=== PATIENT | female | born 1990 | race Caucasian/White ===

== ENCOUNTER 2017-08-23 08:58 | Emergency (ER) | payer OTHER ==
[~2017-08-23 08:58] MED LIST: CIPR1TAB11 PO; GLC/500 PO; POLY335025 PO; PRLSR20 PO; SENN-58 PO
[2017-08-23] MEDS ORDERED: ACETAMINOPHEN 325 MG TAB PO STA (09:58)
--- NOTE | 2017-08-23 10:14 | DIAGNOSTIC IMAGING REPORT ---
SINGLE VIEW CHEST CLINICAL HISTORY: Right upper quadrant abdominal pain. FINDINGS: An AP, portable, upright chest radiograph is compared to study dated 07/10/2011. The cardiomediastinal silhouette is unremarkable. There are low lung volumes. Bibasilar airspace opacities likely represent atelectasis. No large pleural effusion or pneumothorax is seen. The bony thorax is grossly intact. There is mild thoracolumbar scoliosis. IMPRESSION: Low lung volumes with no acute cardiopulmonary abnormality. Electronically signed by: Homer Hernandez M.D. 08/23/2017 10:12 AM Dictated Date/Time: 08/23/2017 10:12 AM
[2017-08-23 11:34] LABS: BASO % 0.2 %; EOS % 0.2 %; HEMATOCRIT 43.1 % (37-47); HEMOGLOBIN 14.8 g/dL (12.0-16.0); LYMPH % 30.4 %; LYMPH ABS # 1.32 K/uL (1.2-3.4); MEAN CELL VOLUME 98.9 fL (80-100); MEAN CORPUSCULAR HEMOGLOBIN 33.9 pg (25-34); MEAN CORPUSCULAR HGB CONC 34.3 g/dl (32-36); MEAN PLATELET VOLUME 9.5 fL (7.4-10.4); MONO % 10.1 %; MONO ABS # 0.44 K/uL (0.11-0.59); NEUT % 58.9 %; NEUT ABS # 2.55 K/uL (1.4-6.5); PLATELET COUNT 133 K/uL (130-400); RED CELL DISTRIBUTION WIDTH CV 12.9 % (11.5-14.5); RED CELL DISTRIBUTION WIDTH SD 46.6 fL (36.4-46.3); WHITE BLOOD COUNT 4.34 K/uL (4.8-10.8)
[2017-08-23 11:35] LABS: BASO ABS # 0.01 K/uL (0-0.2); EOS ABS # 0.01 K/uL (0-0.5); IG# 0.01 K/uL (0.00-0.02)
[2017-08-23 11:56] LABS: ALBUMIN 3.3 gm/dl (3.4-5.0); ALT/SGPT 81 U/L (12-78); AST/SGOT 48 U/L (15-37); BLOOD UREA NITROGEN 18 mg/dl (7-18); CALCIUM 8.7 mg/dl (8.5-10.1); CARBON DIOXIDE 32 mmol/L (21-32); CREATININE 0.85 mg/dl (0.60-1.20); GLUCOSE 84 mg/dl (70-99); POTASSIUM 3.9 mmol/L (3.5-5.1); SODIUM 139 mmol/L (136-145)
[2017-08-23 12:00] LABS: ALKALINE PHOSPHATASE 75 U/L (45-117); TOTAL PROTEIN 7.8 gm/dl (6.4-8.2)
--- NOTE | 2017-08-23 12:11 | DIAGNOSTIC IMAGING REPORT ---
ULTRASOUND RIGHT UPPER QUADRANT ABDOMEN CLINICAL HISTORY: Right upper quadrant abdominal pain. COMPARISON STUDY: Abdominal CT dated 09/27/2013. TECHNIQUE: Real-time, grayscale, and color flow sonography of the right upper quadrant of the abdomen was performed. Images are reviewed in the transverse and longitudinal planes. FINDINGS: Liver: The liver is top normal in size and demonstrates heterogeneously increased echotexture suggesting hepatic steatosis. There is no intrahepatic biliary ductal dilatation. The main portal vein is patent. Gallbladder: The gallbladder is normal in appearance. No gallstones are identified. There is no gallbladder wall thickening or pericholecystic fluid. A sonographic Mendieta's sign is reportedly absent. The common bile duct measures up to 0.4 cm in diameter. Pancreas: Visualized portions of the pancreatic head and body are normal in appearance. Right kidney: Survey images of the right kidney demonstrate normal size and echotexture. There is no hydronephrosis. Ascites: None. IMPRESSION: 1. No acute sonographic abnormality is identified. No gallstones are seen. 2. Findings suggest hepatic steatosis. Electronically signed by: Homer Hernandez M.D. 08/23/2017 12:10 PM Dictated Date/Time: 08/23/2017 12:09 PM
[2017-08-23 13:49] VITALS: TEMP 36.8
--- NOTE | 2017-08-23 14:11 | EMERGENCY ROOM VISIT NOTE ---
History First contact with patient: 09:23 Chief Complaint: ABDOMINAL PAIN Stated Complaint: ABD PAIN Nursing Triage Summary: Intermittent abdominal pain History of Present Illness The patient is a 27 year old female who presents to the Emergency Room with complaints of "abdominal pain". The patient states that she has right-sided abdominal pain. The patient does have trisomy 21. She is able to answer some questions. Much of the history comes from her mother. The patient began with flu/sinus congestion a week ago with a fever. There has been no fever recently. Over the past few days the patient has been complaining of right upper quadrant abdominal pain. The mother notes that this was worked up a couple years ago and no cause was found. Seems to wax and wane. There is no history of constipation. There has been no vomiting, nausea, diarrhea, urinary symptoms. Review of Systems A complete 10-point Review of Systems was discussed with the patient, with pertinent positives and negatives listed in the History of Present Illness. All remaining Review of Systems questions can be considered negative unless otherwise specified. Past Medical/Surgical History Medical Problems: (1) Chlamydial infection (2) Complete trisomy 21 syndrome (3) Obesity Social History Smoking Status: Never Smoker Alcohol Use: none Occupation Status: disabled Current/Historical Medications No Active Prescriptions or Reported Meds Physical Exam Vital Signs Date Time Temp Pulse Resp B/P (MAP) Pulse Ox O2 Delivery O2 Flow Rate FiO2 08/23/17 14:38 84 20 108/69 97 08/23/17 13:49 36.8 62 110/79 95 Room Air 08/23/17 09:17 36.8 118 20 105/77 93 Room Air Physical Exam VITAL SIGNS - Vital signs and nursing notes were reviewed. Tachycardic upon arrival. The documented pulse ox is incorrect. GENERAL -27-year-old female appearing her stated age who is in no acute distress. Communicates well with provider and answers questions appropriately. SKIN - Without rashes. No petechia or meningeal rash. LUNGS - Chest wall symmetric without accessory muscle use, intercostals retractions, or central cyanosis. Normal vesicular breath sounds CTA B/L. No wheezes, rales, or rhonchi appreciated. CARDIAC - RRR with S1/S2. No murmur, rubs, or gallops appreciated. ABDOMEN - Abdominal contour normal without pulsations or visible masses. BS normoactive all four quadrants. RUQ abdominal tenderness noted. No palpable masses, hepatosplenomegaly, or ascites noted. Medical Decision & Procedures ER Provider Diagnostic Interpretation: SINGLE VIEW CHEST CLINICAL HISTORY: Right upper quadrant abdominal pain. FINDINGS: An AP, portable, upright chest radiograph is compared to study dated 07/10/2011. The cardiomediastinal silhouette is unremarkable. There are low lung volumes. Bibasilar airspace opacities likely represent atelectasis. No large pleural effusion or pneumothorax is seen. The bony thorax is grossly intact. There is mild thoracolumbar scoliosis. IMPRESSION: Low lung volumes with no acute cardiopulmonary abnormality. Electronically signed by: Homer Hernandez M.D. 08/23/2017 10:12 AM Dictated Date/Time: 08/23/2017 10:12 AM ULTRASOUND RIGHT UPPER QUADRANT ABDOMEN CLINICAL HISTORY: Right upper quadrant abdominal pain. COMPARISON STUDY: Abdominal CT dated 09/27/2013. TECHNIQUE: Real-time, grayscale, and color flow sonography of the right upper quadrant of the abdomen was performed. Images are reviewed in the transverse and longitudinal planes. FINDINGS: Liver: The liver is top normal in size and demonstrates heterogeneously increased echotexture suggesting hepatic steatosis. There is no intrahepatic biliary ductal dilatation. The main portal vein is patent. Gallbladder: The gallbladder is normal in appearance. No gallstones are identified. There is no gallbladder wall thickening or pericholecystic fluid. A sonographic Mendieta's sign is reportedly absent. The common bile duct measures up to 0.4 cm in diameter. Pancreas: Visualized portions of the pancreatic head and body are normal in appearance. Right kidney: Survey images of the right kidney demonstrate normal size and echotexture. There is no hydronephrosis. Ascites: None. IMPRESSION: 1. No acute sonographic abnormality is identified. No gallstones are seen. 2. Findings suggest hepatic steatosis. Electronically signed by: Homer Hernandez M.D. 08/23/2017 12:10 PM Dictated Date/Time: 08/23/2017 12:09 PM Laboratory Results 08/23/17 11:15 Red Blood Count 4.36, Mean Corpuscular Volume 98.9, Mean Corpuscular Hemoglobin 33.9, Mean Corpuscular Hemoglobin Concent 34.3, Mean Platelet Volume 9.5, Neutrophils (%) (Auto) 58.9, Lymphocytes (%) (Auto) 30.4, Monocytes (%) (Auto) 10.1, Eosinophils (%) (Auto) 0.2, Basophils (%) (Auto) 0.2, Neutrophils # (Auto ) 2.55, Lymphocytes # (Auto) 1.32, Monocytes # (Auto) 0.44, Eosinophils # (Auto ) 0.01, Basophils # (Auto) 0.01 08/23/17 11:15 Test 08/23/17 11:15 08/23/17 11:25 White Blood Count 4.34 K/uL (4.8-10.8) Red Blood Count 4.36 M/uL (4.2-5.4) Hemoglobin 14.8 g/dL (12.0-16.0) Hematocrit 43.1 % (37-47) Mean Corpuscular Volume 98.9 fL (80-100) Mean Corpuscular Hemoglobin 33.9 pg (25-34) Mean Corpuscular Hemoglobin Concent 34.3 g/dl (32-36) Platelet Count 133 K/uL (130-400) Mean Platelet Volume 9.5 fL (7.4-10.4) Neutrophils (%) (Auto) 58.9 % Lymphocytes (%) (Auto) 30.4 % Monocytes (%) (Auto) 10.1 % Eosinophils (%) (Auto) 0.2 % Basophils (%) (Auto) 0.2 % Neutrophils # (Auto) 2.55 K/uL (1.4-6.5) Lymphocytes # (Auto) 1.32 K/uL (1.2-3.4) Monocytes # (Auto) 0.44 K/uL (0.11-0.59) Eosinophils # (Auto) 0.01 K/uL (0-0.5) Basophils # (Auto) 0.01 K/uL (0-0.2) RDW Standard Deviation 46.6 fL (36.4-46.3) RDW Coefficient of Variation 12.9 % (11.5-14.5) Immature Granulocyte % (Auto) 0.2 % Immature Granulocyte # (Auto) 0.01 K/uL (0.00-0.02) Anion Gap 3.0 mmol/L (3-11) Estimated GFR () 110.4 Estimated GFR (Non- 95.2 BUN/Creatinine Ratio 21.5 (10-20) Calcium Level 8.7 mg/dl (8.5-10.1) Total Bilirubin 0.5 mg/dl (0.2-1) Aspartate Amino Transf (AST/SGOT) 48 U/L (15-37) Alanine Aminotransferase (ALT/SGPT) 81 U/L (12-78) Alkaline Phosphatase 75 U/L (45-117) Troponin I < 0.015 ng/ml (0-0.045) Total Protein 7.8 gm/dl (6.4-8.2) Albumin 3.3 gm/dl (3.4-5.0) Globulin 4.5 gm/dl (2.5-4.0) Albumin/Globulin Ratio 0.7 (0.9-2) Urine Color YELLOW Urine Appearance CLEAR (CLEAR) Urine pH 7.0 (4.5-7.5) Urine Specific [place] 1.025 (1.000-1.030) Urine Protein NEG (NEG) Urine Glucose (UA) NEG (NEG) Urine Ketones NEG (NEG) Urine Occult Blood TRACE (NEG) Urine Nitrite NEG (NEG) Urine Bilirubin NEG (NEG) Urine Urobilinogen NEG (NEG) Urine Leukocyte Esterase SMALL (NEG) Urine WBC (Auto) 5-10 /hpf (0-5) Urine RBC (Auto) 5-10 /hpf (0-4) Urine Hyaline Casts (Auto) 0 /lpf (0-5) Urine Epithelial Cells (Auto) >30 /lpf (0-5) Urine Bacteria (Auto) NEG (NEG) Medications Administered Medications (Trade) Dose Ordered Sig/Edward Route Start Time Stop Time Status Last Admin Dose Admin Acetaminophen (Tylenol Tab) 650 mg NOW STAT PO 08/23/17 09:58 08/23/17 09:59 DC 08/23/17 11:28 650 MG Medical Decision Patient was seen and evaluated as above. She presents today with right upper quadrant abdominal pain. She is nontoxic on exam. The right upper quadrant abdominal pain is noted upon palpation verified by tenderness. IV access was initiated, and the above workup was performed. Chest x-ray reveals low lung volumes, otherwise negative. Gallbladder ultrasound Reveals No Emergent Etiology However Hepatis Steatosis Is Suspected. No leukocytosis or concerning anemia. Metabolic panel reveals elevation of AST and ALT. Troponin negative. EKG per my interpretation reveals normal sinus rhythm, no ectopy or ischemic change. Urine reveals a contaminated sample. Case was discussed with the attending physician. She appears stable for outpatient management. I suspect she is likely experiencing other pain from the hepatic steatosis, or perhaps underlying abdominal cramping. I do not suspect any emergent process. They're to follow with the family doctor and potentially GI. They were educated upon management, educated upon worrisome symptoms in which to return, had questions answered prior to discharge, and were discharged home in good condition. In evaluation treatment this patient following differential diagnoses entertained: Acute cholecystitis, cholangitis, biliary colic, pancreatitis, among others. Impression Primary Impression: Right upper quadrant abdominal pain Departure Information Dispostion Home / Self-Care Condition GOOD Prescriptions No Active Prescriptions or Reported Meds Referrals Barbara Verdin DO (PCP) Patient Instructions My [facility] Additional Instructions You have been treated in the Emergency Department your Abdominal Pain. Laboratory results and imaging studies have ruled out any emergent causes for your abdominal pain which would warrant admission or surgery. For pain control, you can use the following [id number] medicines : Please no Tylenol because of the liver - Regular strength (200 mg/tab) Advil (ibuprofen) 1-2 tabs every 4-6 hours as needed. Do not exceed a dose of 3200 mg per day. Drink plenty of water and stay well hydrated. As with any trip to the Emergency Department, you should follow-up with your Primary Care Provider from today's visit. Return to the emergency department if your symptoms persist despite treatment plan outlined above or if the following symptoms occur: increased fevers, chills , worsening nausea/vomiting, blood in your stool or urine.
[2017-08-23 14:38] VITALS: BP 108/69; PULSE 84; O2SAT 97
== END 2017-08-23 14:37 | disposition home or self-care (01) ==
LOC: C.EDB 08:59 → C.EDC 14:37
DX: R10.11 Right upper quadrant pain (principal); Q90.9 Down syndrome, unspecified